=== PATIENT | female | born 1970 | race Caucasian/White ===

== ENCOUNTER 2017-01-14 18:52 | Emergency (ER) | payer OTHER ==
[2017-01-14 19:01] VITALS: BP 146/81
[2017-01-14] MEDS ORDERED: AMLODIPINE BESY10 M1 PO (19:24)
[2017-01-14] MEDS ORDERED: HYDROCHLOROTHIA50 M1 PO (19:24)
[2017-01-14] MEDS ORDERED: LIDOCAINE HCL V15 ML PO (19:33)
[2017-01-14] MEDS ORDERED: CEFUROXIME500 MG PO (19:33)
--- NOTE | 2017-01-14 19:33 | ED THROAT/DENTAL COMPLAINT ---
History of Present Illness General Chief Complaint: Sore Throat, Dental Pain Stated Complaint: SORE THROAT Source: patient Exam Limitations: no limitations Vital Signs & Intake/Output Vital Signs & Intake/Output Vital Signs Date Time Temp Pulse Resp B/P Pulse O2 O2 Flow FiO2 Ox Delivery Rate 01/14 1901 97.5 76 16 146/81 95 Room Air ED Intake and Output 01/15 0000 01/14 1200 Intake Total 0 Output Total Balance 0 Intake, Oral 0 Allergies Coded Allergies: Sulfa (Sulfonamide Antibiotics) (HIVES 01/14/17) amoxicillin (From AUGMENTIN) (FULL BODY HIVES 01/14/17) clavulanic acid (From AUGMENTIN) (FULL BODY HIVES 01/14/17) meperidine (From DEMEROL) (SITE OF INJ RED AND SWOLLEN 01/14/17) Reconcile Medications Amlodipine Besylate 10 MG TABLET 1 TAB PO DAILY BP (Reported) Cefuroxime Axetil (Cefuroxime) 500 MG TABLET 1 TAB PO BID sinusitis Hydrochlorothiazide 50 MG TABLET 1 TAB PO DAILY BP (Reported) Lidocaine HCl (Lidocaine HCl Viscous) 2 % SOLUTION 15 ML PO 4 TIMES/DAY sore throat magic mouth wash(lidocaine, benadryl maalox equal parts) Triage Note: TRIAGE; PT TO ED C/O SINUS INFECTION. STATES HAS HX OF THE SAME. STATES WAS GOING TO GO TO PCP TOMORROW BUT DIDNT WANT TO WAIT. ALSO C/O SORE THROAT X3-4 DAYS. STATES SOME PAIN WITH SWALLOWING. Triage Nurses Notes Reviewed? yes Onset: Abrupt Duration: day(s): (few) Timing: recent history Injury Environment: home No Modifying Factors: none : No Patient currently breastfeeds: No HPI: 46-year-old female comes into emergency room for further evaluation of nasal congestion sinus pressure sore throat. Patient reports that the sore throat began over last 24 hours. Denies any fever chills cough. Denies any vomiting. Denies any other associated symptoms. (JACEK TRIANA) Past History Travel History Traveled to [place] past 21 day No Medical History Any Pertinent Medical History? see below for history Cardiovascular: hypertension Surgical History Surgical History: non-contributory Psychosocial History What is your primary language Irish Tobacco Use: Current Daily Use Daily Tobacco Use Amount/Type: => 5 Cigarettes daily ETOH Use: occasional use Illicit Drug Use: denies illicit drug use Family History Hx Contributory? No (JACEK TRIANA) Review of Systems Review of Systems Constitutional: Reports: see HPI. EENTM: Reports: see HPI. Respiratory: Reports: no symptoms. Cardiovascular: Reports: no symptoms. GI: Reports: no symptoms. Genitourinary: Reports: no symptoms. Musculoskeletal: Reports: no symptoms. Skin: Reports: no symptoms. Neurological/Psychological: Reports: no symptoms. Hematologic/Endocrine: Reports: no symptoms. Immunologic/Allergic: Reports: no symptoms. All Other Systems: Reviewed and Negative (JACEK TRIANA) Physical Exam Physical Exam General Appearance: well developed/nourished, no apparent distress, alert Head: atraumatic, normal appearance Eyes: Bilateral: normal appearance. Ears: Bilateral: other (normal inspection). Nose: normal inspection Mouth/Throat: pharynx swelling, tonsillar exudate, tonsillar swelling Neck: normal inspection, full range of motion, lymphadenopathy (R), lymphadenopathy (L) Cardiovascular/Respiratory: no respiratory distress Back: normal inspection Neurologic/Psych: awake, alert, oriented x 3, normal gait Skin: intact, normal color Core Measures ACS in differential dx? No Severe Sepsis Present: No Septic Shock Present: No (JACEK TRIANA) Progress Differential Diagnosis: aspirated tooth, carious tooth, epiglottitis, Ludwigs angina, meningitis, odontogenic abscess, markus-tonsillar abscess, pharyngeal for. body, stomatitis/gingivitis, strep pharyngitis, tooth fracture Plan of Care: Orders Procedure Date/time Status THROAT CULTURE W/QUICK STREP 01/14 5970 Active Comments: 01/14/2017 7:55:42 PM Patient clinically looks well. No evidence of peritonsillar abscess at this time. Patient covered with antibiotics due to sinus symptoms as well as the severe exudates and erythema appreciated on exam. Otherwise patient looks well and is in no apparent distress upon discharge. No evidence of airway compromise. No stridor. Patient given a dose of Decadron here. Patient will follow up with primary care doctor. Return if any other concerns. (JACEK TRIANA) Departure Departure Disposition: HOME OR SELF CARE Condition: Stable Clinical Impression Primary Impression: Pharyngitis Secondary Impressions: Sinusitis Referrals: HERMAN NUNEZ (PCP/Family) Additional Instructions: Take cefuroxime and Magic mouthwash as prescribed. Gargle with salt water as needed. Motrin at home. Follow-up with primary care doctor for recheck in 2-3 days. Please go over all results of today's visit with your primary care doctor. Contact your primary care doctor to let them know you were here in the emergency room. There may be nonspecific findings which may not be related to your visit today here in the emergency room but may require further evaluation and chronic monitoring by your primary care doctor. If you had a laceration today the chance of foreign body always remains. You should follow-up with your primary care doctor for recheck in 3-5 days for a wound check. If you had an x-ray done there is a chance that a fracture could have been missed on initial read and you should follow-up with your primary care doctor for repeat x-rays if symptoms persist. If your blood pressure was elevated here in the emergency room please have rechecked by her primary care doctor within the next 48 hours by your primary care doctor. If you were prescribed a narcotic here in the emergency room or any type of controlled substances you're not allowed to drive while taking this medication or operate any type of heavy machinery. Narcotics can make you feel lightheaded dizziness nausea and can cause constipation. You may need to picker tender helper a stool softener. Thank you for choosing [facility] emergency room. Please return to the emergency room immediately if you have any other concerns worsening of symptoms. Departure Forms: Customer Survey General Discharge Information Prescriptions: Current Visit Scripts Cefuroxime Axetil (Cefuroxime) 1 TAB PO BID #20 TAB Lidocaine HCl (Lidocaine HCl Viscous) 15 ML PO 4 TIMES/DAY #100 ML magic mouth wash(lidocaine, benadryl maalox equal parts) (JACEK TRIANA) PA/ATM SERVICER Co-Sign Statement Statement: ED Attending supervision documentation- [] I saw and evaluated the patient. I have also reviewed all the pertinent lab results and diagnostic results. I agree with the findings and the plan of care as documented in the PA's/ATM SERVICER's documentation. [x] I have reviewed the ED Record and agree with the PA's/ATM SERVICER's documentation. [] Additions or exceptions (if any) to the PAs/ATM SERVICER's note and plan are summarized below: [] (EVARISTO HARRIS,ROLY Cole)
== END 2017-01-14 19:52 ==
LOC: ERH 18:52
DX: J02.9 Acute pharyngitis, unspecified (principal); J32.9 Chronic sinusitis, unspecified; Z72.0 Tobacco use

== ENCOUNTER → 2018-02-01 | Day surgery (SDC) | payer OTHER ==
[~2018-02-01] VITALS: Ht 165.1 cm; Wt 150.6 kg
[~2018-02-01] MED LIST: AMLODIPINE BESY10 M1 PO; CEFUROXIME500 MG PO; HYDROCHLOROTHIA50 M1 PO; LIDOCAINE HCL V15 ML PO
--- NOTE | 2018-02-01 12:35 | Operative Report ---
Operative/Inv Procedure Report Surgery Date: 02/01/18 Name of Procedure: Tonsillectomy and adenoidectomy Partial uvulectomy Pre-Operative Diagnosis: Chronic tonsillitis Tonsil and adenoid hypertrophy Post-Operative Diagnosis: Chronic tonsillitis Tonsil and operating room hypertrophy Uvula hypertrophy Estimated Blood Loss: less than 50ml Surgeon/Dermatology Physician: Zahida Florence MD Anesthesia: general endotracheal tube Specimens: 1. Right tonsil 2. Left tonsil 3. Adenoids and uvula Complications: Non- Condition: Stable on leaving the OR Operative Indication: Mouth breathing and heavy Muffled voice Recurrent upper respiratory infections Recurrent tonsillitis Concretions forming within the tonsils with bad breath and bad taste Patient has been treated with recurrent courses of antibiotics with improvement but then recurrence Operative/Procedure Note Note: Patient was brought to the operating room. Placed on the operating table in supine position. First timeout was performed including patient's name, ID number and planned procedure. Then general orotracheal anesthesia was induced. Endotracheal tube was taped in the midline. Oral cavity was exposed with oral cavity retractor, endotracheal tube positioned in the midline over the tongue. Soft palate was palpated. There was no submucous cleft. Nasopharynx was visualized with a mirror. The nasopharynx was obstructed by large adenoids. Two red rubber catheters were placed into the nose for elevation of soft palate and secured in place with Kalli clamps. Nasopharynx was visualized with a mirror. Medium-sized adenoid curette was used to shave the adenoids. Additional tissue was removed from the choana with Clemons Galvez forceps. Bleeding was controlled by application of pressure with tonsil sponges. Then cautery of the adenoidal bed was carried with the suction Bovie set on coag of 35. At the end of the adenoidectomy there was no further bleeding and nasopharynx was widely patent. A small tonsil sponge was placed into the nasopharynx for further hemostasis and attention was then given to the tonsillectomy. Tonsils were markedly enlarged with significant exophytic and endophytic component. For this dissection pencil bovie with a blade was used set on cautery of 15 and cut 5. Right tonsil was grasped with curved Allis, incision was placed over the anterior superior pole of the mucosa only. Tonsil capsule was identified and dissection was carried from superior to inferior until the entire tonsil was removed. Next the left tonsil was grasped with curved Allis. Incision was placed with the Bovie over the anterior-superior pole through the mucosa only. Tonsillar capsule was identified and dissection carried from the superior to the inferior until the entire tonsil was removed. At the end of the procedure tonsillar fossa was inspected for bleeders. Additional cautery was carried to assure adequate hemostasis. During dissection both tonsils were scarred down onto the tonsillar fossa. Surgery was completed. Stomach was suctioned with an OG tube. The patient was reawakened, extubated and taken to the recovery room in good condition. There were no complications. Estimated blood loss was 30 ml. Findings: Tonsils 4+ with marked exophytic and endophytic component, markedly scarred down onto the tonsillar fossa, great deal of concretions Adenoids marked hypertrophy with obstruction of nasopharynx Uvula hypertrophy with obstruction of oropharynx Discharge Disposition: PACU
== END ==
LOC: STS 03:34
DX: J35.03 Chronic tonsillitis and adenoiditis (principal); K13.79 Other lesions of oral mucosa; R06.5 Mouth breathing; R19.6 Halitosis; R06.89 Other abnormalities of breathing; F17.210 Nicotine dependence, cigarettes, uncomplicated; R49.8 Other voice and resonance disorders; J39.8 Other specified diseases of upper respiratory tract; I10 Essential (primary) hypertension; E66.01 Morbid (severe) obesity due to excess calories; Z68.43 Body mass index [BMI] 50.0-59.9, adult
CPT/HCPCS: 81025; 88304; 88305; C9399; J0690; J1100; J2250; J2405